=== PATIENT | female | born 1950 | race Caucasian/White ===

== ENCOUNTER 2018-05-25 16:52 | Emergency (ER) | payer MEDICARE, BC ==
[~2018-05-25] VITALS: Ht 165.1 cm; Wt 98.6 kg
[~2018-05-25 16:52] MED LIST: ASPI-1264 PO; ATOR10TA87 PO; GABA-338 PO; IRBE75TA30 PO; LIOT25TA8 PO; LORA1TAB PO; NAPR-232 PO; RISE150T PO; SOLI10TA6 PO; SYN0.0125T PO
[2018-05-25 19:01] VITALS: BP 126/73
== END 2018-05-25 19:04 | disposition home or self-care (01) ==
LOC: ER 16:53
DX: M25.561 Pain in right knee (principal); M25.571 Pain in right ankle and joints of right foot; I10 Essential (primary) hypertension; M19.90 Unspecified osteoarthritis, unspecified site; Z88.5 Allergy status to narcotic agent; Z88.8 Allergy status to other drugs, medicaments and biological substances; Z79.82 Long term (current) use of aspirin; Z79.899 Other long term (current) drug therapy
CPT/HCPCS: 29505; 73564; 73610; 73700; 99284

== ENCOUNTER 2024-12-03 13:10 | Day surgery (SDC) | payer MEDICARE, MEDICAID ==
[2024-11-28 15:20] LABS: BASOPHILS % (AUTO) 0.4 % (0-1); EOSINOPHILS # (AUTO) 0.1 X10'3 (0-0.9); EOSINOPHILS % (AUTO) 0.8 % (0-6); HEMATOCRIT 37.1 % (35.0-45.0); HEMOGLOBIN 12.3 g/dl (12.0-16.0); LYMPHOCYTES # (AUTO) 1.8 X10'3 (1.1-4.8); LYMPHOCYTES % (AUTO) 22.3 % (21-51); MEAN CORPUSCULAR HEMOGLOBIN 27.9 PG (27.0-31.0); MEAN CORPUSCULAR HGB CONC 33.1 g/dL (33.0-36.5); MEAN CORPUSCULAR VOLUME 84.3 FL (78-98); MEAN PLATELET VOLUME 7.3 FL (7.4-10.4); MONOCYTES # (AUTO) 0.5 X10'3 (0-0.9); MONOCYTES % (AUTO) 6.6 % (2-12); NEUTROPHILS # (AUTO) 5.7 X10'3 (1.8-7.7); NEUTROPHILS % (AUTO) 69.9 % (42-75); PLATELET COUNT 222 X10'3 (140-440); RED BLOOD COUNT 4.41 X10'6 (4.20-5.60); WHITE BLOOD COUNT 8.1 X10'3 (4.5-11.0)
[2024-11-28 15:41] LABS: ALBUMIN 3.3 G/DL (3.4-5.0); ANION GAP 7 (8-16); BLOOD UREA NITROGEN 17 MG/DL (7-18); BUN/CREATININE RATIO 21.3 (10.0-20.0); CALCIUM 8.9 MG/DL (8.5-10.1); CHLORIDE 107 MMOL/L (99-107); GLUCOSE 129 MG/DL (70-104); POTASSIUM 3.9 MMOL/L (3.5-5.1); SODIUM 142 MMOL/L (135-145); TOTAL CARBON DIOXIDE 28.5 MMOL/L (24-32); eGFR 70 ML/MIN
[2024-12-03] VITALS (11 sets, daily range): BP systolic 112–152; BP diastolic 64–112; PULSE 73–131; RESP 12–17; O2SAT 95–100
[~2024-12-03] VITALS: Ht 165.1 cm; Wt 110.1 kg
[~2024-12-03 13:10] MED LIST changes: +LIOT25TA12 PO; -LIOT25TA8 PO
[2024-12-03] MEDS: normal saline 1000ml 1,000 ML IV SCH (13:30)
[2024-12-03] MEDS ORDERED: LEVO175T7 PO (13:43)
[2024-12-03] MEDS ORDERED: FURO20TA4 PO (13:43)
[2024-12-03] MEDS ORDERED: CYAN10007 IM (13:43)
[2024-12-03] MEDS ORDERED: ATOR20TA66 PO (13:43)
[2024-12-03] MEDS ORDERED: SOTA80TA PO (13:43)
[2024-12-03] MEDS ORDERED: ASPI-1397 PO (13:45)
[2024-12-03] MEDS ORDERED: LOSA100T58 PO (13:45)
[2024-12-03] MEDS ORDERED: APIX5TAB3 PO (13:45)
[2024-12-03] MEDS ORDERED: CHOL20002 PO (13:45)
[2024-12-03] MEDS: fentaNYL/PF 50MCG/1 ML 2ML syringe IV ONE (15:44)
[2024-12-03] MEDS: MIDAZolam 1mg/ml 10ml vial IV ONE (15:45)
== END 2024-12-03 17:10 | disposition home or self-care (01) ==
LOC: SSTAY O 13:10
PROVIDERS: ATTEND Student in an Organized Health Care Education/Training Program
DX: I48.91 Unspecified atrial fibrillation (principal); I10 Essential (primary) hypertension; E78.5 Hyperlipidemia, unspecified; E03.9 Hypothyroidism, unspecified; Z88.6 Allergy status to analgesic agent; Z88.8 Allergy status to other drugs, medicaments and biological substances; Z79.899 Other long term (current) drug therapy; Z98.890 Other specified postprocedural states
CPT/HCPCS: 80048; 85025; 92960; J2250; J3010; J7030